=== PATIENT | female | born 1990 | race Caucasian/White ===

== ENCOUNTER 2021-03-12 10:00 | Inpatient (IN) | payer BC ==
[2021-03-12] MEDS ORDERED: ELECTROLYTE-148 SOLN 1,000 ML IV SCH (10:15)
[2021-03-12] MEDS ORDERED: PROMETHAZINE HCL 25 MG/1 ML VIAL IVPUSH ONE (10:15)
[2021-03-12] MEDS ORDERED: PROMETHAZINE HCL 25 MG/1 ML VIAL IVPB ONE (10:15)
[2021-03-12] MEDS ORDERED: BUTORPHANOL TARTRATE 1 MG/ML VIAL IVPB ONE (10:15)
[2021-03-12 10:58] LABS: BASO % 0.2 % (0-2.0); EOS % 0.2 % (0-4.5); HEMATOCRIT 29.1 % (32.4-45.2); HEMOGLOBIN 9.6 GM/dL (10.7-15.3); LYMPH % 11.9 % (8-40); MCH 26.2 pg (25.7-33.7); MCHC 33.1 g/dl (32.0-36.0); MEAN CELL VOLUME 79.3 fl (80-96); MEAN PLT VOLUME 11.4 fl (7.5-11.1); MONO % 4.4 % (3.8-10.2); NEUT % 83.3 % (42.8-82.8); PLATELET COUNT 108 K/MM3 (134-434); RBC 3.67 M/mm3 (3.60-5.2); RDW 13.3 % (11.6-15.6); WHITE BLOOD COUNT 9.4 K/mm3 (4.0-10.0)
[2021-03-12 11:01] LABS: INR 0.91 (0.83-1.09); PROTHROMBIN TIME (PATIENT) 11.1 SEC (9.7-13.0)
[2021-03-12 11:04] LABS: ACTIVATED PTT 28.7 SECONDS (25.2-36.5)
[2021-03-12 11:13] LABS: CALCIUM 7.6 mg/dL (8.5-10.1)
[2021-03-12 11:14] LABS: BLOOD UREA NITROGEN 7.8 mg/dL (7-18)
[2021-03-12 11:17] LABS: CREATININE 0.6 mg/dL (0.55-1.3)
[2021-03-12] MEDS ORDERED: BUTORPHANOL TARTRATE 2 MG/ML VIAL ONE (11:35)
[2021-03-12] MEDS ORDERED: FENTANYL/BUPIVACAINE/NS/PF - PCEA - 50 ML DISP.SYRIN EP ONE ×2 (12:09→16:34)
[2021-03-12] MEDS ORDERED: BUPIVACAINE HCL/PF 0.25% (2.5MG/ML) 10 ML VIAL ONE ×2 (12:12→16:25)
[2021-03-12] MEDS ORDERED: NALOXONE HCL 0.4 MG/ML VIAL IVPUSH PRN (12:38)
[2021-03-12] MEDS ORDERED: FENTANYL/BUPIVACAINE/NS/PF - PCEA - 50 ML DISP.SYRIN EP SCH (12:45)
[2021-03-12 13:00] LABS: HIV INTERPRETATION NEGATIVE (NEGATIVE)
[2021-03-12 13:09] VITALS: BMI 23.6
[2021-03-12] MEDS ORDERED: OXYTOCIN 30 UNITS in 0.9% NS 30 UNIT/500 ML INFUS.BAG IVPB SCH (15:00)
[2021-03-12] MEDS ORDERED: OXYTOCIN 20 UNITS in 0.9% NS 20 UNIT/1,000 ML INFUS.BAG IV ONE (19:06)
[2021-03-12] MEDS ORDERED: LIDOCAINE HCL 1% PRESERVATIVE FREE - 30ML VIAL ONE (19:06)
[2021-03-12] MEDS ORDERED: WITCH HAZEL 50% (TUCKS) 40 PAD/JAR PAD TP PRN (21:22)
[2021-03-12] MEDS ORDERED: BENZOCAINE 28 GM HEMORRHOIDAL OINTMENT TP PRN (21:22)
[2021-03-12] MEDS ORDERED: BISACODYL 10 MG SUPP.RECT RC PRN (21:22)
[2021-03-12] MEDS ORDERED: BENZOCAINE 20% 57 GM BOTTLE TP PRN (21:22)
[2021-03-12] MEDS ORDERED: METHYLERGONOVINE MALEATE 0.2 MG/1 ML AMP IM PRN (21:22)
[2021-03-12] MEDS ORDERED: OXYTOCIN 20 UNITS in 0.9% NS 20 UNIT/1,000 ML INFUS.BAG IV SCH (21:30)
[2021-03-12] MEDS ORDERED: oxyCODONE HCL 5 MG TABLET ONE (21:49)
[2021-03-12] MEDS: oxyCODONE HCL 5 MG TABLET PO PRN (21:50)
[2021-03-12] MEDS ORDERED: PCA PUMP NR ONE (21:59)
[2021-03-12] MEDS: IBUPROFEN 600 MG TABLET (FP) PO PRN (22:29)
[2021-03-12] MEDS: ACETAMINOPHEN 325 MG TABLET (FP) PO PRN (22:30)
[2021-03-12] MEDS ORDERED: ACETAMINOPHEN 325 MG TABLET (FP) ONE (22:32)
[2021-03-12] MEDS ORDERED: IBUPROFEN 600 MG TABLET (FP) PO ONE (22:32)
[2021-03-13] MEDS: IBUPROFEN 600 MG TABLET (FP) PO PRN ×3 (01:20→18:13)
[2021-03-13] MEDS: ACETAMINOPHEN 325 MG TABLET (FP) PO PRN ×3 (01:20→12:12)
[2021-03-13 08:27] LABS: BASO % 0.1 % (0-2.0); EOS % 0.1 % (0-4.5); HEMATOCRIT 25.3 % (32.4-45.2); HEMOGLOBIN 8.3 GM/dL (10.7-15.3); LYMPH % 10.4 % (8-40); MCHC 32.7 g/dl (32.0-36.0); MEAN CELL VOLUME 79.6 fl (80-96); MEAN PLT VOLUME 11.5 fl (7.5-11.1); MONO % 5.6 % (3.8-10.2); NEUT % 83.8 % (42.8-82.8); PLATELET COUNT 97 K/MM3 (134-434); RBC 3.17 M/mm3 (3.60-5.2); RDW 13.4 % (11.6-15.6)
[2021-03-13] MEDS: PRENATAL VITAMINS W/ FOLIC ACID TABLET (FP) PO SCH (09:32)
[2021-03-13] MEDS: oxyCODONE HCL 5 MG TABLET PO PRN ×2 (12:07→18:14)
[2021-03-13] MEDS ORDERED: SENNOSIDES/DOCUSATE COMBO (SENNA PLUS) TABLET (UD) PO PRN (22:00)
[2021-03-14] MEDS: IBUPROFEN 600 MG TABLET (FP) PO PRN ×2 (00:28→10:41)
[2021-03-14] MEDS: oxyCODONE HCL 5 MG TABLET PO PRN (00:29)
[2021-03-14] MEDS: PRENATAL VITAMINS W/ FOLIC ACID TABLET (FP) PO SCH (10:39)
[2021-03-14] MEDS: ACETAMINOPHEN 325 MG TABLET (FP) PO PRN (10:42)
[2021-03-14 14:20] VITALS: BP 108/64; PULSE 83; TEMP 98.8
== END 2021-03-14 17:45 | disposition home or self-care (01) | DRG 807 ==
LOC: JLDR 10:00 → J3W 23:25
PROVIDERS: ADMIT Obstetrics & Gynecology; ATTEND Obstetrics & Gynecology
PROC: 10E0XZZ Delivery of Products of Conception, External Approach (ICD-10-PCS; principal; 2021-03-12)
PROC: 0W8NXZZ Division of Female Perineum, External Approach (ICD-10-PCS; 2021-03-12)
DX: O80 Encounter for full-term uncomplicated delivery (principal); Z37.0 Single live birth; Z3A.39 39 weeks gestation of pregnancy
CPT/HCPCS: 36415; 59409; 80048; 85025; 85461; 85610; 85730; 86780; 86850; 86870; 86900; 86901; 86902; 87389; C9803; U0003; U0005